=== PATIENT | female | born 1995 | race Two or more races ===

== ENCOUNTER 2016-03-31 13:38 | Emergency (ER) | payer MEDICAID, OTHER ==
[~2016-03-31] VITALS: Ht 160 cm; Wt 46.3 kg
[2016-03-31 13:51] VITALS: BP 111/43
[2016-03-31 14:30] LABS: Urine Bilirubin Negative (Negative); Urine Blood Negative /uL (Negative); Urine Color Yellow (Yellow); Urine Glucose Normal (Normal); Urine Ketone TRACE (Negative); Urine Mucus FEW (None Seen); Urine Nitrite Negative (Negative); Urine RBC 1 /hpf (0 - 4); Urine Squamous Epithelial Cell FEW /hpf (<5); Urine Urobilinogen Normal (Negative); Urine pH 5.5 (5.0-8.0)
== END 2016-03-31 16:42 | disposition home or self-care (01) ==
LOC: ER 13:45
DX: N39.0 Urinary tract infection, site not specified (principal); J06.9 Acute upper respiratory infection, unspecified
CPT/HCPCS: 81001

== ENCOUNTER 2016-12-14 17:33 | Emergency (ER) | payer MEDICAID, OTHER ==
[~2016-12-14] VITALS: Ht 188 cm; Wt 127.0 kg
[2016-12-14 18:29] LABS: Urine Bilirubin Negative (Negative); Urine Blood Negative /uL (Negative); Urine Color Yellow (Yellow); Urine Glucose Normal (Normal); Urine Ketone Negative (Negative); Urine Nitrite Negative (Negative); Urine RBC <1 /hpf (0 - 4); Urine Squamous Epithelial Cell FEW /hpf (<5); Urine Urobilinogen Normal (Negative)
[2016-12-14 19:23] VITALS: BP 131/67
== END 2016-12-14 19:03 | disposition home or self-care (01) ==
LOC: ER 17:53
DX: N39.0 Urinary tract infection, site not specified (principal)
CPT/HCPCS: 81001; 81025

== ENCOUNTER 2016-12-30 19:34 | Emergency (ER) | payer OTHER ==
[~2016-12-30] VITALS: Ht 160 cm; Wt 48.1 kg
[2016-12-30 20:14] VITALS: BP 108/64
== END 2016-12-30 22:19 | disposition left against medical advice (07) ==
LOC: ER 19:36
DX: N39.0 Urinary tract infection, site not specified (principal); Z53.21 Procedure and treatment not carried out due to patient leaving prior to being seen by health care provider

== ENCOUNTER 2017-01-01 13:14 | Emergency (ER) | payer OTHER ==
[~2017-01-01] VITALS: Ht 157.5 cm; Wt 43.8 kg
[2017-01-01 14:17] VITALS: BP 140/64
== END 2017-01-01 14:42 | disposition home or self-care (01) ==
LOC: ER 13:14
DX: N39.0 Urinary tract infection, site not specified (principal)
CPT/HCPCS: 81025

== ENCOUNTER 2019-01-22 12:37 | Emergency (ER) | payer OTHER ==
[~2019-01-22] VITALS: Ht 160 cm; Wt 45.4 kg
[2019-01-22 12:43] VITALS: BP 111/65
== END 2019-01-22 15:15 | disposition left against medical advice (07) ==
LOC: ER 12:37
DX: M79.675 Pain in left toe(s) (principal); Z53.21 Procedure and treatment not carried out due to patient leaving prior to being seen by health care provider

== ENCOUNTER 2020-06-02 18:45 | Emergency (ER) | payer SELFPAY ==
[~2020-06-02] VITALS: Ht 157.5 cm; Wt 47.6 kg
[2020-06-02 19:35] LABS: Urine Bacteria NONE SEEN /hpf (None Seen); Urine Blood Negative /uL (Negative); Urine Mucus FEW (None Seen); Urine Specific Gravity 1.022 (1.001-1.035); Urine WBC 50 /hpf (0 - 5)
[2020-06-02 20:00] VITALS: BP 118/43
[2020-06-02] MEDS ORDERED: cefTRIAXone SOD 1,000 MG VL IM ONE (22:30)
== END 2020-06-02 23:04 | disposition home or self-care (01) ==
LOC: ER 18:45
DX: N39.0 Urinary tract infection, site not specified (principal)
CPT/HCPCS: 81001; 81025; 87086; 96372; 99283; J0696